=== PATIENT | male | born 1965 | race Caucasian/White ===

== ENCOUNTER 2017-09-05 16:18 | Emergency (ER) | payer MEDICAID, OTHER ==
[2017-09-05 17:24] LABS: BASO % 0.3 % (0.0-2.0); EOS # 0.1 K/uL (0.0-0.7); EOS % 0.4 % (0.0-4.0); HEMOGLOBIN 12.4 g/dL (12.0-18.0); LYMPH # 0.9 K/uL (1.0-4.3); LYMPH % 7.1 % (20.0-40.0); MEAN CELL VOLUME 75.6 fL (80.0-94.0); MEAN CORPUSCULAR HEMOGLOBIN 24.7 pg (27.0-31.0); MEAN CORPUSCULAR HGB CONC 32.6 g/dL (33.0-37.0); MEAN PLATELET VOLUME 8.2 fL (7.2-11.7); MONO # 0.6 K/uL (0.0-0.8); MONO % 4.9 % (0.0-10.0); NEUT # 11.2 K/uL (1.8-7.0); NEUT % 87.3 % (50.0-75.0); PLATELET COUNT 217 K/uL (130-400); RBC 5.05 Mil/uL (4.40-5.90); RED CELL DISTRIBUTION WIDTH 16.9 % (11.5-14.5); WHITE BLOOD COUNT 12.9 K/uL (4.8-10.8)
[2017-09-05 17:36] LABS: ALB/GLOB RATIO 1.1 (1.0-2.1); ALBUMIN 4.6 g/dL (3.5-5.0); ALT/SGPT 35 U/L (21-72); AST/SGOT 35 U/L (17-59); BLOOD UREA NITROGEN 11 mg/dL (9-20); CALCIUM 9.6 mg/dl (8.6-10.4); GFR AFRICAN-AMERICAN > 60; GFR NON-AFRICAN AMERICAN > 60
--- NOTE | 2017-09-05 17:50 | C.PDOC ---
History Of Present Illness 52-year-old male, PMHx includes schizophrenia and hypertension, brought to the emergency department by EMS with complaints of hypoglycemia. Patients blood sugar was 58. He last took meds at 13:00, and had last meal at 10:00 this morning. States the medication was added to his regimen three weeks ago. Patient was given oral glucose en route by EMS. No other complaints at this time. Time Seen by Provider: 09/05/17 16:26 Chief Complaint (Nursing): Abnormal Labs Past Medical History Reviewed: Historical Data, Nursing Documentation, Vital Signs Vital Signs: Last Vital Signs Temp 97.5 F L 09/05/17 16:39 Pulse 73 09/05/17 16:39 Resp 18 09/05/17 16:39 BP 111/86 09/05/17 16:39 Pulse Ox 100 09/05/17 18:07 - Medical History PMH: Schizophrenia Comment Only: Diabetes (Unknown), Hepatitis (Unknown), HIV (Unknown), HTN ( Unknown), Seizures (Unknown), Sexually Transmitted Disease (Unknown) Family History: States: No Known Family Hx - Social History Hx Tobacco Use: No Hx Alcohol Use: No Hx Substance Use: No - Immunization History Hx Tetanus Toxoid Vaccination: No Hx Influenza Vaccination: No Hx Pneumococcal Vaccination: No Review Of Systems Constitutional: Negative for: Fever Cardiovascular: Negative for: Chest Pain Respiratory: Negative for: Shortness of Breath Neurological: Negative for: Weakness, Numbness, Headache, Dizziness Physical Exam - Physical Exam Appears: Non-toxic, No Acute Distress, Other (Obese) Skin: Warm, No Rash Head: Atraumatic, Normacephalic Eye(s): bilateral: Normal Inspection, EOMI Nose: Normal Oral Mucosa: Moist Lips: Normal Appearing Neck: Normal ROM Chest: Symmetrical Cardiovascular: Rhythm Regular, No Murmur Respiratory: Normal Breath Sounds, No Accessory Muscle Use Extremity: Normal ROM, No Deformity, No Swelling Neurological/Psych: Oriented x3, Normal Speech Gait: Steady ED Course And Treatment - Laboratory Results Result Diagrams: 09/05/17 17:19 09/05/17 17:19 Lab Interpretation: No Acute Changes O2 Sat by Pulse Oximetry: 100 (RA) Pulse Ox Interpretation: Normal Medical Decision Making Medical Decision Making: Impression: Hypoglycemia Plan: * Bloodwork * UA Reassess and Disposition\ Labs WNL. Patient remained well alert and oriented in no distress. He is ambulatory without any complaints. Patient is stable for discharge Disposition Counseled Patient/Family Regarding: Diagnosis, Need For Followup - Disposition Referrals: Thuan Catalan DO [Staff Provider] - Disposition: HOME/ ROUTINE Disposition Time: 18:38 Condition: GOOD Additional Instructions: Continue with current medications Be sure to not skip meals and take diabetic medications and check sugars at home Follow up with your primary medical doctor or clinic in 2-5 days for further evaluation. Return to the emergency department at any time if symptoms persist or worsen. Instructions: Low Blood Sugar, Adult (DC) Forms: [employer] (Korean) - POA Present On Arrival: None - Clinical Impression Clinical Impression: Hypoglycemia - Scribe Statement The provider has reviewed the documentation as recorded by the Scribe (Mango Qureshi) All medical record entries made by the Scribe were at my direction and personally dictated by me. I have reviewed the chart and agree that the record accurately reflects my personal performance of the history, physical exam, medical decision making, and the department course for this patient. I have also personally directed, reviewed, and agree with the discharge instructions and disposition.
[2017-09-05 18:21] LABS: ANISOCYTOSIS SLIGHT; HYPOCHROMIC SLIGHT; LYMPHOCYTE 5 % (20-40); MICROCYTOSIS SLIGHT; MONOCYTE 3 % (0-10); NEUTROPHIL 92 % (50-75); PLATELET ESTIMATE NORMAL (NORMAL); TOTAL CELLS COUNTED 100
[2017-09-05 18:25] LABS: SQUAMOUS EPITHIAL < 1 /hpf (0-5); URINE BILIRUBIN NEGATIVE (NEGATIVE); URINE BLOOD NEGATIVE (NEGATIVE); URINE CLARITY Clear (Clear); URINE COLOR Straw (YELLOW); URINE GLUCOSE (UA) NORMAL (Normal); URINE LEUKOCYTE ESTERASE NEG Leu/uL (Negative); URINE PROTEIN NEGATIVE (NEGATIVE); URINE UROBILINOGEN NORMAL mg/dL (0.2-1.0)
[2017-09-05 19:03] VITALS: BP 116/73; PULSE 83; RESP 20; TEMP 98.1; O2SAT 97
== END 2017-09-05 19:52 | disposition home or self-care (01) ==
LOC: C.ER 16:18
DX: E16.2 Hypoglycemia, unspecified (principal)